=== PATIENT | male | born 1980 | race Caucasian/White ===

== ENCOUNTER 2017-04-29 14:45 | Emergency (ER) | payer MEDICAID ==
[~2017-04-29] VITALS: Ht 180.3 cm; Wt 95.0 kg
[2017-04-29 14:54] VITALS: BP 162/98
[2017-04-29] MEDS ORDERED: ATEN50TA PO (14:58)
[2017-04-29] MEDS ORDERED: OMEP20CA10 PO (14:58)
== END 2017-04-29 17:46 | disposition left against medical advice (07) ==
LOC: ER 15:42
DX: Z53.21 Procedure and treatment not carried out due to patient leaving prior to being seen by health care provider (principal)